=== PATIENT | female | born 1950 | race Caucasian/White ===

== ENCOUNTER → 2016-12-29 | Outpatient (CLI) | payer MEDICARE | LOC: WI 13:12 | PROVIDERS: ATTEND Internal Medicine | DX: Z12.31 Encounter for screening mammogram for malignant neoplasm of breast (principal) | CPT/HCPCS: 77067; G0202 ==

== ENCOUNTER → 2018-01-07 | Outpatient (CLI) | payer MEDICARE ==
--- NOTE | 2018-01-11 12:42 | WOMENS IMAGING REPORT ---
EXAM DESCRIPTION: 3D SCREENING MAMMO BILAT COMPLETED DATE/TIME: 01/07/2018 1:32 pm REASON FOR STUDY: ROUTINE SCREENING;Z12.31 Z12.31 ENCNTR SCREEN MAMMOGRAM FOR MALIGNANT NEOPLASM OF PRABHU COMPARISON: 2013 to 2016 TECHNIQUE: Standard craniocaudal and mediolateral oblique views of each breast recorded using digita l acquisition and breast tomosynthesis. LIMITATIONS: None. FINDINGS: No masses, calcifications or architectural distortion. No areas of suspicion. Read with the assistance of CAD. .[facility] - R2 Cenova Version 1.3 .[facility] Imaging - R2 Cenova Version 1.3 .[facility] Imaging - R2 Cenova Version 2.4 .[facility] [place] R2 Cenova Version 2.4 .[facility] - R2 Chief Privacy Officer Version 9.2 IMPRESSION: NORMAL MAMMOGRAM. BIRADS 1. BREAST DENSITY: b. There are scattered areas of fibroglandular density. BIRAD: 1 NEGATIVE RECOMMENDATION: ROUTINE SCREENING COMMENT: The patient has been notified of the results by letter per SA requirements. Additional no tification policies are in place for contacting patient with suspicious or incomplete findings. Quality ID #[id number]: The [employer] recommends an annual screening mammogram for women aged 40 years or over. This facility utilizes a reminder system to ensure that all patients receive reminder letters, and/or direct phone calls for appointments. This includes reminders for routine scr eening mammograms, diagnostic mammograms, or other Breast Imaging Interventions when appropriate. Th is patient will be placed in the appropriate reminder system. The [employer] (ACR) has developed recommendations for screening MRI of the breast s in certain patient populations, to be used in conjunction with mammography. Breast MRI surveillanc e may be appropriate for women with more than 20% lifetime risk of developing breast cancer as deter mined by genetic testing, significant family history of the disease, or history of mantle radiation f or Hodgkins Disease. ACR Practice Guidelines 2008. DBT Technology DBT is a type of tomographic mammography. With conventional mammography, overlapping breast tissue ma y make lesions difficult to detect, even with good compression. DBT uses an x-ray tube that rotates a round the breast, taking images at different angles. These images are then combined to create thin sl ices of the breast that the radiologist can view as a 3D reconstruction. The CRAZE unit can perform full-field digital mammograms (2D imaging); or DBT (3D imaging); or both, in a combination mode that quickly performs both the mammogram and the tomosynthesis scan while the breast is still compressed. PQRS 6045F: Fluoroscopic imaging is not utilized for breast tomosynthesis. TECHNICAL DOCUMENTATION: FINDING NUMBER: (1) ASSESSMENT: (1) JOB ID: [id number] [employer]- All Rights Reserved Reading location - IP/workstation name: [email or web address] [id number]
== END ==
LOC: WI 13:05
PROVIDERS: ATTEND Internal Medicine
DX: Z12.31 Encounter for screening mammogram for malignant neoplasm of breast (principal)
CPT/HCPCS: 77063; 77067

== ENCOUNTER → 2019-01-09 | Outpatient (CLI) | payer MEDICARE ==
--- NOTE | 2019-01-09 15:29 | WOMENS IMAGING REPORT ---
EXAM DESCRIPTION: BONE DENSITY HIP/SPINE COMPLETED DATE/TIME: 01/09/2019 1:41 pm REASON FOR STUDY: Z78.0 ASYMPTOMATIC MENOPAUSAL STATE Z12.31 ENCNTR SCREEN MAMMOGRAM FOR MALIGNANT NEOPLASM OF PRABHU Z78.0 ASYMPTOMATIC MENOPAUSAL STATE COMPARISON: 11/16/2013 TECHNIQUE: Dual-Energy X-ray Absorptiometry (DEXA) of the AP Spine and Hip. LIMITATIONS: None. FINDINGS: LUMBAR SPINE: The bone mineral density (BMD) measured from L1-L4 in the AP projection correlates with a T-score of 0.2, which is normal as defined by the World Health Organization. HIP: The bone mineral density (BMD) measured in the left hip correlates with a T-score of 0.0 in the femor al neck, which is normal as defined by the World Health Organization. IMPRESSION: 1. LUMBAR SPINE: Normal 2. HIP: Normal COMMENT: The World Health Organization defines low BMD as follows: T-score: Normal: Greater than -1.0 Osteopenia: Between -1.0 and -2.5 Osteoporosis: Less than -2.5 without fractures Established osteoporosis: Less than -2.5 with fractures In general, you may wish to consider: Diagnosis Treatment Follow-up DEXA Normal BMD Prevention 2-3 years Osteopenia Prevention/Therapy 1-2 years Osteoporosis Therapy Yearly TECHNICAL DOCUMENTATION: JOB ID: [id number] [employer]- All Rights Reserved Reading location - IP/workstation name: [email or web address]
--- NOTE | 2019-01-09 17:06 | WOMENS IMAGING REPORT ---
EXAM DESCRIPTION: 3D SCREENING MAMMO BILAT COMPLETED DATE/TIME: 01/09/2019 1:41 pm REASON FOR STUDY: Z12.31 ENCOUNTER FOR SCREENING MAMMOGRAM FOR MALIGNANT NEOPLASM OF BREAST Z12.31 ENCNTR SCREEN MAMMOGRAM FOR MALIGNANT NEOPLASM OF PRABHU Z78.0 ASYMPTOMATIC MENOPAUSAL STATE COMPARISON: 12/29/2016 and 12/27/2015. TECHNIQUE: Standard craniocaudal and mediolateral oblique views of each breast recorded using digita l acquisition and breast tomosynthesis. LIMITATIONS: None. FINDINGS: Findings present which are benign by mammographic criteria. No suspicious masses, calcific ations or architectural distortion. Pertinent benign findings: Benign calcifications. Read with the assistance of CAD. .[facility] - R2 Cenova Version 1.3 .[facility] Imaging - R2 Cenova Version 2.1 .[facility] Imaging - R2 Cenova Version 2.4 .[facility] - R2 Cenova Version 2.4 .[facility] - R2 Math Interventionist Version 9.2 Benign mammographic findings may include one or more of the following: Smooth masses, popcorn/rim/coa rse calcifications, asymmetries, post-procedure changes, and lesions with long-standing stability. IMPRESSION: BENIGN MAMMOGRAPHIC FINDINGS. BIRADS 2 BREAST DENSITY: b. There are scattered areas of fibroglandular density. BIRAD: 2 BENIGN FINDING(S) RECOMMENDATION: ROUTINE SCREENING COMMENT: The patient has been notified of the results by letter per SA requirements. Additional no tification policies are in place for contacting patient with suspicious or incomplete findings. Quality ID #225: The [employer] recommends an annual screening mammogram for women aged 40 years or over. This facility utilizes a reminder system to ensure that all patients receive reminder letters, and/or direct phone calls for appointments. This includes reminders for routine scr eening mammograms, diagnostic mammograms, or other Breast Imaging Interventions when appropriate. Th is patient will be placed in the appropriate reminder system. The [employer] (ACR) has developed recommendations for screening MRI of the breast s in certain patient populations, to be used in conjunction with mammography. Breast MRI surveillanc e may be appropriate for women with more than 20% lifetime risk of developing breast cancer as deter mined by genetic testing, significant family history of the disease, or history of mantle radiation f or Hodgkins Disease. ACR Practice Guidelines 2008. DBT Technology DBT is a type of tomographic mammography. With conventional mammography, overlapping breast tissue ma y make lesions difficult to detect, even with good compression. DBT uses an x-ray tube that rotates a round the breast, taking images at different angles. These images are then combined to create thin sl ices of the breast that the radiologist can view as a 3D reconstruction. The HoloJ[employer]le unit can perform full-field digital mammograms (2D imaging); or DBT (3D imaging); or both, in a combination mode that quickly performs both the mammogram and the tomosynthesis scan while the breast is still compressed. PQRS 6045F: Fluoroscopic imaging is not utilized for breast tomosynthesis. TECHNICAL DOCUMENTATION: FINDING NUMBER: (1) ASSESSMENT: (1) JOB ID: [id number] Location- All Rights Reserved Reading location - IP/workstation name: [email or web address]
== END ==
LOC: WI 13:06
PROVIDERS: ATTEND Internal Medicine
DX: Z12.31 Encounter for screening mammogram for malignant neoplasm of breast (principal); Z78.0 Asymptomatic menopausal state
CPT/HCPCS: 77063; 77067; 77080

== ENCOUNTER 2019-05-25 09:09 | Day surgery (SDC) | payer MEDICARE ==
[~2019-05-25 09:09] MED LIST: CHONDR SU A NA/HYALUR INTRAOC KIT (SURGICARE) ONE; EPINEPHRINE INJ/PF 1 MG/1 ML AMPULE ONE; FENTANYL CITRATE INJ/PF 100 MCG/2 ML AMPUL ONE; KETOROLAC TROMETHAMINE 0.45% 4 DROP/0.4 ML DROPERETTE OS PRN; LIDOCAINE 1%/PHENYLEPHRINE 1.5% 1 ML VIAL ONE; MIDAZOLAM 2 MG/2 ML INJ ONE
[2019-05-25] MEDS: TROPICAMIDE 1% OPH SOLN 3 ML OS PRN ×3 (10:01→10:20)
[2019-05-25] MEDS: TETRACAINE HCL 0.5% OPH SOLN 4 ML OS PRN ×3 (10:01→10:27)
[2019-05-25] MEDS: BESIFLOXACIN HCL 0.6% OPH SUSP 5 ML BOTTLE OS PRN ×4 (10:02→10:42)
[2019-05-25] MEDS: CYCLOPENTOLATE 0.2%/PHENYLEPHRINE 1% OPH SOLN 2 ML OS PRN ×3 (10:02→10:20)
[2019-05-25] MEDS: DORZOLAMIDE HCL 2%/TIMOLOL MALEAT 0.5% OPH SOLN 10 ML OS PRN ×2 (10:42)
--- NOTE | 2019-05-25 13:01 | Operative Report ---
Operative Report-[facility] Operative Report: DATE OF SURGERY: 05-18 PREOPERATIVE DIAGNOSIS: Cataracts, left eye POSTOPERATIVE DIAGNOSIS: Cataract, left eye OPERATION: Cataract extraction with insertion of an IOL of the left eye. Intraocular Lens Model: [21.0 sn60wf] reason for surgery: difficulty seeing for driving SURGEON: Atif Brown MD ANESTHESIA: Topical PROCEDURE: After obtaining appropriate consent, the patient's left eye was prepped and draped in a sterile fashion as well as the surgeon in the sterile manner and cataract surgery was started. First a paracentesis blade was used to make a side-port incision. Viscoelastic was used to inflate the anterior chamber. Next a 2.4 mm incision was made with a 2.4 mm blade, clear corneal temporarily. A continuous capsulorrhexis was made using a cystotome and Utrata forceps. Following this hydrodissection was carried out to make commands fully loose and mobile and it was rotated 90 degrees. Following this, a divide and conquer technique was used to phacoemulsify the lens. The remaining cortex was removed with an irrigation/aspiration. Provisc was instilled into the capsular bag to inflate the bag.The intracular lens was placed. The remaining viscoelastic material was removed with irrigation/aspiration. Following this, the incision was found to be watertight. Besivance and Cosopt was instilled into the eye and a protective shield was placed over the eye. The patient was turned to the postoperative recovery in a stable condition.
== END 2019-05-25 11:22 | disposition home or self-care (01) ==
LOC: SC 09:09
PROVIDERS: ATTEND Internal Medicine
DX: H25.13 Age-related nuclear cataract, bilateral (principal); E11.9 Type 2 diabetes mellitus without complications; E03.9 Hypothyroidism, unspecified; E78.00 Pure hypercholesterolemia, unspecified; Z87.891 Personal history of nicotine dependence; I11.9 Hypertensive heart disease without heart failure
CPT/HCPCS: 82962; 00142; 66984; V2632; J2250; J3490 ×2; A9270; J0171; J3010; J2370; 142

== ENCOUNTER 2019-06-22 08:02 | Day surgery (SDC) | payer MEDICARE ==
[~2019-06-22 08:02] MED LIST changes: -CHONDR SU A NA/HYALUR INTRAOC KIT (SURGICARE) ONE; -EPINEPHRINE INJ/PF 1 MG/1 ML AMPULE ONE; -FENTANYL CITRATE INJ/PF 100 MCG/2 ML AMPUL ONE; +KETOROLAC TROMETHAMINE 0.45% 4 DROP/0.4 ML DROPERETTE OD PRN; -KETOROLAC TROMETHAMINE 0.45% 4 DROP/0.4 ML DROPERETTE OS PRN; -LIDOCAINE 1%/PHENYLEPHRINE 1.5% 1 ML VIAL ONE; -MIDAZOLAM 2 MG/2 ML INJ ONE
[2019-06-22] MEDS ORDERED: FENTANYL CITRATE INJ/PF 100 MCG/2 ML AMPUL ONE (08:29)
[2019-06-22] MEDS ORDERED: MIDAZOLAM 2 MG/2 ML INJ ONE (08:29)
[2019-06-22] MEDS ORDERED: ONDANSETRON HCL INJ/PF 4 MG/2 ML SDV ONE (08:29)
[2019-06-22] MEDS: TROPICAMIDE 1% OPH SOLN 15 ML OD PRN ×3 (08:56→09:16)
[2019-06-22] MEDS: TETRACAINE HCL 0.5% OPH SOLN 4 ML OD PRN ×4 (08:56→09:29)
[2019-06-22] MEDS: CYCLOPENTOLATE 0.2%/PHENYLEPHRINE 1% OPH SOLN 2 ML OD PRN ×3 (08:56→09:16)
[2019-06-22] MEDS: BESIFLOXACIN HCL 0.6% OPH SUSP 5 ML BOTTLE OD PRN ×4 (08:56→09:58)
[2019-06-22] MEDS: CHONDR SU A NA/HYALUR INTRAOC KIT (SURGICARE) ONE ×2 (09:46)
[2019-06-22] MEDS: LIDOCAINE 1%/PHENYLEPHRINE 1.5% 1 ML VIAL ONE ×2 (09:46)
[2019-06-22] MEDS: EPINEPHRINE INJ/PF 1 MG/1 ML AMPULE ONE ×2 (09:46)
[2019-06-22] MEDS: DORZOLAMIDE HCL 2%/TIMOLOL MALEAT 0.5% OPH SOLN 10 ML OD PRN ×2 (09:58)
[2019-06-22] MEDS ORDERED: LIDOCAINE 1%/PHENYLEPHRINE 1.5% 1 ML VIAL ONE (10:28)
--- NOTE | 2019-06-22 13:47 | Operative Report ---
Operative Report-[facility] Operative Report: DATE OF SURGERY: 06/22/2019 PREOPERATIVE DIAGNOSIS: Cataract, right eye POSTOPERATIVE DIAGNOSIS: Cataract, right eye OPERATION: Cataract extraction with insertion of an toric IOL of the right eye. Intraocular Lens Model: [21.0 sn6at4 at 20 degrees} pt underwent surgery because they are having difficulty seeing road signs. SURGEON: Atif Brown MD ANESTHESIA: Topical PROCEDURE: After obtaining appropriate consent, the patient's right eye was prepped and draped in a sterile fashion as well as the surgeon in the sterile manner and cataract surgery was started. First a paracentesis blade was used to make a side-port incision. Viscoelastic was used to inflate the anterior chamber. Next a 2.4 mm incision was made with a 2.4 mm blade, clear corneal temporarily. A continuous capsulorrhexis was made using a cystotome and Utrata forceps. Following this hydrodissection was carried out to make the bryan fully loose and mobile and it was rotated. Following this, a divide and conquer technique was used to phacoemulsify the bryan. The remaining cortex was removed with an irrigation/aspiration. Provisc was instilled into the capsular bag to inflate the bag. The intraocular lens was placed. The remaining viscoelastic material was removed with irrigation/aspiration. Following this, the incision was found to be watertight. Besivance and Cosopt was instilled into the eye and a protective shield was placed over the eye. The patient was reurned to the postoperative recovery in a stable condition.
== END 2019-06-22 10:41 | disposition home or self-care (01) ==
LOC: SC 08:02
PROVIDERS: ATTEND Internal Medicine
DX: H25.11 Age-related nuclear cataract, right eye (principal); Z96.1 Presence of intraocular lens; H04.123 Dry eye syndrome of bilateral lacrimal glands; E11.9 Type 2 diabetes mellitus without complications; E07.9 Disorder of thyroid, unspecified; I25.2 Old myocardial infarction; I10 Essential (primary) hypertension; F17.210 Nicotine dependence, cigarettes, uncomplicated; Z79.899 Other long term (current) drug therapy; Z88.5 Allergy status to narcotic agent; Z79.84 Long term (current) use of oral hypoglycemic drugs; I49.9 Cardiac arrhythmia, unspecified
CPT/HCPCS: 66984; 82962; V2787; J2250; J3490 ×2; A9270; J0171; J3010; J2405; J2370; 142

== ENCOUNTER → 2020-02-29 | Outpatient (CLI) | payer MEDICARE ==
--- NOTE | 2020-02-29 10:48 | WOMENS IMAGING REPORT ---
EXAM DESCRIPTION: 3D SCREENING MAMMO BILAT IMAGES COMPLETED DATE/TIME: 02/29/2020 9:19 am REASON FOR STUDY: Z12.31 SCREENING MAMMO Z12.31 ENCNTR SCREEN MAMMOGRAM FOR MALIGNANT NEOPLASM OF B RE COMPARISON: [id number] EXAM PARAMETERS: Standard craniocaudal and mediolateral oblique views of each breast recorded using digital acquisition and breast tomosynthesis. Read with the assistance of CAD. .[facility] - R2 Donation Worker Version 9.2 LIMITATIONS: None. FINDINGS: Findings present which are benign by mammographic criteria. No suspicious masses, calcific ations or architectural distortion. Pertinent benign findings: Stable calcifications Benign mammographic findings may include one or more of the following: Smooth masses, popcorn/rim/coa rse calcifications, asymmetries, post-procedure changes, and lesions with long-standing stability. IMPRESSION: BENIGN MAMMOGRAPHIC FINDINGS. BIRADS 2 BREAST DENSITY: b. There are scattered areas of fibroglandular density. BIRAD: ASSESSMENT: 2 BENIGN FINDING(S) RECOMMENDATION: ROUTINE SCREENING COMMENT: The patient has been notified of the results by letter per SA requirements. Additional no tification policies are in place for contacting patient with suspicious or incomplete findings. Quality ID #[id number]: The [employer] recommends an annual screening mammogram for women aged 40 years or over. This facility utilizes a reminder system to ensure that all patients receive reminder letters, and/or direct phone calls for appointments. This includes reminders for routine scr eening mammograms, diagnostic mammograms, or other Breast Imaging Interventions when appropriate. Th is patient will be placed in the appropriate reminder system. TECHNICAL DOCUMENTATION: FINDING NUMBER: (1) ASSESSMENT: (1) JOB ID: [id number] [employer]- All Rights Reserved Reading location - IP/workstation name: [email or web address]-
== END ==
LOC: WI 08:40
PROVIDERS: ATTEND Internal Medicine
DX: Z12.31 Encounter for screening mammogram for malignant neoplasm of breast (principal)
CPT/HCPCS: 77063; 77067